=== PATIENT | female | born 1985 | race Caucasian/White ===

== ENCOUNTER 2016-12-25 14:17 | Inpatient (IN) | payer BC ==
[~2016-12-25] VITALS: Ht 172.7 cm; Wt 73.2 kg
[~2016-12-25 14:17] MED LIST: PRENATAL1 TA1 PO
[2017-03-01] VITALS (51 sets, daily range): BP systolic 90–116; BP diastolic 50–558; PULSE 52–90; TEMP 97.7–98.9
[2017-03-01 08:18] LABS: BASO % 0.3 % (0.0-2.0); EOS % 0.3 % (0-4.0); GRAN # 6.9 (1.4-6.5); GRAN % 74.4 % (42.2-75.2); HEMATOCRIT 35.8 % (37.0-47.0); LYMPH # 1.7 (1.2-3.4); MEAN CELL VOLUME 94 fl (80.0-100.0); MEAN CORPUSCULAR HEMOGLOBIN 32 pg (27.0-31.0); MEAN CORPUSCULAR HGB CONC 34 g/dl (33.0-37.0); MEAN PLATELET VOLUME 9.2 fl (7.4-10.4); MONO # 0.6 (0.1-0.6); MONO % 5.9 % (1.7-9.3); PLATELET COUNT 217 K/mm3 (130-400); REDCELL DISTRIBUTION WIDTH-CV 14.5 % (11.5-14.5); WHITE BLOOD COUNT 9.3 K/mm3 (4.8-10.8)
[2017-03-02 00:15] VITALS: BP 109/64; PULSE 80
[2017-03-02 00:22] LABS: HEMOGLOBIN 8.4 g/dl (12.5-16.0)
[2017-03-02 03:00] VITALS: BP 107/59; PULSE 77; TEMP 98.1
[2017-03-02 05:14] VITALS: BP 105/50; PULSE 72; TEMP 98.2
[2017-03-02 06:48] LABS: HEMATOCRIT 23.4 % (37.0-47.0); HEMOGLOBIN 7.8 g/dl (12.5-16.0)
[2017-03-02 08:00] VITALS: BP 98/46; PULSE 78; TEMP 98.3
[2017-03-02 16:30] VITALS: BP 104/68; PULSE 72; TEMP 98.1
[2017-03-02 20:10] VITALS: BP 90/58; PULSE 69; TEMP 98
[2017-03-03 08:15] VITALS: BP 100/68; PULSE 72; TEMP 98.3
[2017-03-03] MEDS ORDERED: PERCOCET 325 MG1 TA2 PO (11:01)
[2017-03-03] MEDS ORDERED: IBU600 MG PO (11:01)
[2017-03-03] MEDS ORDERED: FERROUS SU325 MG/TAB PO (11:01)
== END 2017-03-03 14:15 | disposition home or self-care (01) | DRG 765 ==
LOC: EDSTATUS 02-23 08:05 → LDRO 02-23 14:16 → OB 03-01 06:47 → LDR 03-01 06:47 → OB 03-01 22:15
PROVIDERS: Obstetrics & Gynecology
PROC: 10D00Z1 Extraction of Products of Conception, Low, Open Approach (ICD-10-PCS; principal; 2017-03-01)
PROC: 0UB20ZZ Excision of Bilateral Ovaries, Open Approach (ICD-10-PCS; 2017-03-01)
DX: O48.0 Post-term pregnancy (principal); O99.02 Anemia complicating childbirth; D62 Acute posthemorrhagic anemia; O34.83 Maternal care for other abnormalities of pelvic organs, third trimester; O62.1 Secondary uterine inertia; D27.0 Benign neoplasm of right ovary; D27.1 Benign neoplasm of left ovary; Z3A.40 40 weeks gestation of pregnancy; Z37.0 Single live birth
CPT/HCPCS: J0690; J1885; J2210; J2250; J2270; J2370; J2400; J2405; J2590; J2795; J3010; J7120

== ENCOUNTER 2019-05-26 00:14 | Inpatient (IN) | payer BC ==
[2019-05-26] VITALS (43 sets, daily range): BP systolic 95–132; BP diastolic 55–86; PULSE 57–150; TEMP 97.6–98.9
[~2019-05-26] VITALS: Ht 172.7 cm; Wt 72.3 kg
[~2019-05-26 00:14] MED LIST changes: +FERROUS SU325 MG/TAB PO; +IBU600 MG PO; +PERCOCET 325 MG1 TA2 PO
[2019-05-26 01:09] LABS: BASO % 0.2 % (0.0-2.0); EOS # 0.1 (0.0-0.7); EOS % 0.7 % (0-4.0); GRAN # 9.9 (1.4-6.5); GRAN % 73.8 % (42.2-75.2); HEMATOCRIT 38.6 % (37.0-47.0); HEMOGLOBIN 12.9 g/dl (12.5-16.0); LYMPH # 2.6 (1.2-3.4); LYMPH % 19.3 % (20.0-51.0); MEAN CELL VOLUME 93 fl (80.0-100.0); MEAN CORPUSCULAR HEMOGLOBIN 31 pg (27.0-31.0); MEAN CORPUSCULAR HGB CONC 33 g/dl (33.0-37.0); MEAN PLATELET VOLUME 9.4 fl (7.4-10.4); MONO # 0.7 (0.1-0.6); MONO % 5.3 % (1.7-9.3); PLATELET COUNT 268 K/mm3 (130-400); RED BLOOD COUNT 4.15 M/mm3 (4.10-5.30); REDCELL DISTRIBUTION WIDTH-CV 13.9 % (11.5-14.5)
--- NOTE | 2019-05-26 02:00 | NUR ---
0015- Patient ambulatory to LDR-6 with . Patient into restroom to void and change into gown. Patient and oriented to labor room. 0025- EFM and TOCO on and tracing. SVE /2 by this RN. Amniosure positive. Patient states SROM at 2245 with a large amount of clear, odorless fluid noted. Patient denies bleeding or spotting. Patient states she has been having contractions every 5 minutes but says she is not uncomfortable. 0030- See Physician Notification. 0045- IV started. Labs drawn and sent. Assessment completed. Consents signed. 0100- See Anesthesia Notification.
--- NOTE | 2019-05-26 07:30 | NUR ---
Dr. Watson at bedside evaluating patient/FHR strip. No new orders at this time.
--- NOTE | 2019-05-26 07:58 | NUR ---
Patient requesting epidural at this time and Leonarda TATE called and notified. 0820: Patient sitting on edge of bed and Radha Marte CRNA at bedside for placement of epidural. 0824: Single dose given and patient tolerates well. Patient repositioned and precautions gone over.
--- NOTE | 2019-05-26 09:00 | NUR ---
0900: Khan catheter placed per [facility] RN student. Patient tolerates well. SVE-6-7/90/-1 FHR baseline 130-140bpm and tracing recurrent early deceleration and subtle late declerations. Patient turned right lateral with left leg resting in stirrup. 1020: Early deceleration noted. Patient left lateral. 1110: Recurrent early/variable decelerations and patient right lateral. 1130: FHR baseline 130bpm and late subtle decelerations noted. FHR decreasing to 90-120bpm and returns to baseline. 1145: SVE-10/+2 and notified and states he is on the way. Khan catheter removed per [facility] RN student and patient tolerates well. 1152: Dr. Watson at bedside and assessing patient and FHR strip. Patient begins to practice push per Dr. Hebert orders with physician. Patient continues to push with this RN. Dr. Watson at bedside. Patient prepped for vaginal delivery/bed taken apart and pericare done. Continues to push with Dr. Watson. Recurrent variable deceleration noted. 1218: Spontaneous vaginal delivery of head followed by body. bulb syringed and to patients yinka, Jenny RN assumes care of . Cord clamped by physician and cut by FOB. cord blood obtained. 1221: Spontneous delivery of placenta and pitocin bolus started per protocol. Fundal massage done/firm/bleeding WNL. Dr. Watson begins to repair laceration. Pericare done and patient repositioned. Plan of care discussed.
[2019-05-27 00:15] VITALS: BP 92/58; PULSE 65; TEMP 97.9
[2019-05-27 07:09] VITALS: BP 98/63; PULSE 63; TEMP 97.4
[2019-05-27 07:36] LABS: HEMOGLOBIN 11.4 g/dl (12.5-16.0)
[2019-05-27] MEDS ORDERED: MOTRIN 600600 MG/TAB PO (07:41)
[2019-05-27 07:44] LABS: HEMATOCRIT 35.1 % (37.0-47.0)
--- NOTE | 2019-05-27 10:02 | NUR ---
Initial visit; Mom and family thanked [employer] for offering congratulations for the of their baby boy and offered God's blessings.
== END 2019-05-27 14:35 | disposition home or self-care (01) | DRG 807 ==
LOC: LDRO 00:14 → LDR 00:56 → OB 00:56
PROVIDERS: ADMIT Obstetrics & Gynecology
PROC: 10E0XZZ Delivery of Products of Conception, External Approach (ICD-10-PCS; principal; 2019-05-26)
PROC: 0HQ9XZZ Repair Perineum Skin, External Approach (ICD-10-PCS; 2019-05-26)
DX: O42.92 Full-term premature rupture of membranes, unspecified as to length of time between rupture and onset of labor (principal); Z37.0 Single live birth; O34.211 Maternal care for low transverse scar from previous cesarean delivery; O70.0 First degree perineal laceration during delivery; Z3A.41 41 weeks gestation of pregnancy
CPT/HCPCS: J2590; J2795; J7120